=== PATIENT | male | born 1940 | race Caucasian/White ===

== ENCOUNTER → 2016-12-15 | Outpatient (CLI) | payer BC ==
[~2016-12-15] MED LIST: ASPCH81X PO; CHOL100010 PO; CLB/200 PO
[2016-12-15 13:52] LABS: BASO ABS # 0.05 K/uL (0-0.2); COMPLETE YES; EOS % 5.8 %; HEMATOCRIT 45.8 % (42-52); IG% 0.2 %; LYMPH % 36.2 %; LYMPH ABS # 1.81 K/uL (1.2-3.4); MEAN CELL VOLUME 95.2 fL (80-100); MEAN CORPUSCULAR HEMOGLOBIN 33.5 pg (25-34); MEAN CORPUSCULAR HGB CONC 35.2 g/dl (32-36); MEAN PLATELET VOLUME 10.6 fL (7.4-10.4); MONO % 8.4 %; NEUT % 48.4 %; PLATELET COUNT 164 K/uL (130-400); RED BLOOD COUNT 4.81 M/uL (4.7-6.1)
[2016-12-15 14:17] LABS: ALB/GLOB RATIO 1.1 (0.9-2); ALKALINE PHOSPHATASE 79 U/L (45-117); ALT/SGPT 19 U/L (12-78); AST/SGOT 17 U/L (15-37); BLOOD UREA NITROGEN 19 mg/dl (7-18); BUN/CREATININE RATIO 17.4 (10-20); CALCIUM 9.2 mg/dl (8.5-10.1); CARBON DIOXIDE 28 mmol/L (21-32); CHLORIDE 107 mmol/L (98-107); CHOLESTEROL 161 mg/dl (0-200); GLUCOSE 94 mg/dl (70-99); POTASSIUM 4.3 mmol/L (3.5-5.1); SODIUM 143 mmol/L (136-145)
[2016-12-15 14:25] LABS: CHOLESTEROL/HDL RATIO 2.6; HDL CHOLESTEROL 61 mg/dl; LDL CHOLESTEROL CALCULATED 78 mg/dl; TRIGLYCERIDES 108 mg/dl (0-150); VERY LOW DENSITY LIPOPROT CALC 22 mg/dl
== END | disposition home or self-care (01) ==
LOC: C.LABBC 09:21
PROVIDERS: ATTEND Internal Medicine Geriatric Medicine
DX: M19.90 Unspecified osteoarthritis, unspecified site (principal); D12.6 Benign neoplasm of colon, unspecified; R03.0 Elevated blood-pressure reading, without diagnosis of hypertension

== ENCOUNTER → 2017-10-23 | Outpatient (CLI) | payer BC ==
--- NOTE | 2017-10-23 11:20 | DIAGNOSTIC IMAGING REPORT ---
L FINGER(S) MIN 2 VIEWS ROUTINE CLINICAL HISTORY: S67.10XA Injury, crush, fingerDropped a 15 lb weight on his left COMPARISON: None. DISCUSSION: Nondisplaced transverse fracture distal phalanx left third finger. Moderate soft tissue edema. No evidence of dislocation. IMPRESSION: Nondisplaced transverse fracture tuft distal phalanx left third finger. Soft tissue edema. The above report was generated using voice recognition software. It may contain grammatical, syntax or spelling errors. Electronically signed by: Angel Reece M.D. 10/23/2017 11:19 AM Dictated Date/Time: 10/23/2017 11:18 AM
== END | disposition home or self-care (01) ==
LOC: C.RADBC 10:57
PROVIDERS: ATTEND Physician Assistant
DX: S62.663A Nondisplaced fracture of distal phalanx of left middle finger, initial encounter for closed fracture (principal); X58.XXXA Exposure to other specified factors, initial encounter; M79.9 Soft tissue disorder, unspecified

== ENCOUNTER → 2018-02-16 | Outpatient (CLI) | payer BC ==
[2018-02-16 16:48] LABS: BASO % 0.6 %; BASO ABS # 0.03 K/uL (0-0.2); EOS % 5.8 %; HEMATOCRIT 43.3 % (42-52); HEMOGLOBIN 15.2 g/dL (14.0-18.0); IG# 0.01 K/uL (0.00-0.02); LYMPH % 32.9 %; MEAN CELL VOLUME 95.2 fL (80-100); MEAN CORPUSCULAR HEMOGLOBIN 33.4 pg (25-34); MEAN CORPUSCULAR HGB CONC 35.1 g/dl (32-36); MEAN PLATELET VOLUME 9.6 fL (7.4-10.4); MONO % 7.5 %; MONO ABS # 0.39 K/uL (0.11-0.59); NEUT ABS # 2.74 K/uL (1.4-6.5); PLATELET COUNT 181 K/uL (130-400); RED CELL DISTRIBUTION WIDTH CV 12.4 % (11.5-14.5); RED CELL DISTRIBUTION WIDTH SD 42.8 fL (36.4-46.3); WHITE BLOOD COUNT 5.17 K/uL (4.8-10.8)
[2018-02-16 17:01] LABS: ALBUMIN 3.8 gm/dl (3.4-5.0); ALT/SGPT 19 U/L (12-78); BLOOD UREA NITROGEN 22 mg/dl (7-18); CALCIUM 9.1 mg/dl (8.5-10.1); CARBON DIOXIDE 32 mmol/L (21-32); CHOLESTEROL 154 mg/dl (0-200); CREATININE 0.94 mg/dl (0.60-1.40); GLUCOSE 101 mg/dl (70-99); POTASSIUM 3.9 mmol/L (3.5-5.1); SODIUM 140 mmol/L (136-145)
[2018-02-16 17:04] LABS: ALKALINE PHOSPHATASE 89 U/L (45-117); AST/SGOT 20 U/L (15-37); LDL CHOLESTEROL CALCULATED 76 mg/dl; TOTAL PROTEIN 6.9 gm/dl (6.4-8.2)
== END | disposition home or self-care (01) ==
LOC: C.LABPBG 14:24
PROVIDERS: ATTEND Internal Medicine Geriatric Medicine
DX: M19.90 Unspecified osteoarthritis, unspecified site (principal); D12.6 Benign neoplasm of colon, unspecified; R03.0 Elevated blood-pressure reading, without diagnosis of hypertension

== ENCOUNTER 2019-05-26 04:47 | Inpatient (IN) ==
--- NOTE | 2019-05-04 10:33 | PAT Medication Instructions ---
Medication Instructions Date of Service May 04, 2019 Home Medications celecoxib 200 mg capsule 200 mg PO QAM cholecalciferol (vitamin D3) 1,000 unit capsule 1,000 units PO QHS ASK your prescriber and surgeon celecoxib 200 mg capsule 200 mg PO QAM - HOLD 7 DAYS PRIOR TO SURGERY PER PCP'S OFFICE. Take morning of surgery NOTHING TO EAT OR DRINK AFTER MIDNIGHT Take evening before surgery cholecalciferol (vitamin D3) 1,000 unit capsule 1,000 units PO QHS Other Notes If you have any questions please call us at [phone] or [phone] or [phone] or [phone]
--- NOTE | 2019-05-04 11:28 | Anesthesiology Consultation ---
Date of Service May 04, 2019 Assessment & Plan (1) Encounter for pre-operative examination: Chart Review Chart Review: Acceptable Risk for Surgery and Patient seen in Pre Admission Testing Consults Requested medical & cardiac (Tamar Whitney (05/03)) Patient was seen by PCPs office on 05/03 for preoperative evaluation. Per note from that visit, "Using the revised cardiac risk index, he is low risk, class I for cardiac complications with upcoming left total hip arthroplasty." Patient referred to [facility] cardiology due to onset of new LBBB. Was seen on 05/06/19 and an ECHO was performed that day as well (see results above). Per note from that visit "based on his high functional status without limiting cardiopulmonary symptoms and stable exercise tolerance - Patient is an acceptable surgical risk to proceed with surgery as scheduled" Teaching & Discussion Pre-Anesthesia Teaching/Discussion Notes: Instructed NPO after midnight before surgery, except medications with 15 cc of water. Medication instructions provided according to the PAT guidelines. History Surgery Operation Date: 05/26/19 07:15 Proposed Procedures p Left Total Hip Arthroplasty - Armen Morales MD Height/Weight Height: 6 ft 1 in Weight: 81.7 kg Allergies Allergy/AdvReac Type Severity Reaction Status Date / Time No Known Drug Allergies Allergy Verified 05/03/19 07:57 Medications Home Medications Medication Instructions Recorded Confirmed Last Taken celecoxib 200 mg capsule 200 mg PO QAM #90 cap 04/27/19 05/03/19 Unknown cholecalciferol (vitamin D3) 1,000 1,000 units PO QAM 04/28/19 05/03/19 Unknown unit capsule Past Medical History Medical History Vitamin D deficiency Osteoarthritis Nonfamilial multiple polyposis syndrome Exercise / Class Metabolic Activity II 4-5 Yardwork/Stairs/Walk up hill (Stretches/planks/pushups each morning. Walks each day, but less each day due to pain. Able to climb FOS. Denies CP or SOB. ) Past Family History Family History Father Congestive heart failure Dementia Mother Heart disease Bipolar disorder Past Surgical History Surgical History History of right hip replacement right. October 2015, Dr. Keene Hx of arthroscopy of right knee 05/25/[address] Dubon Hx of colonoscopy Hx of right inguinal hernia repair Repair right inguinal hernia with marlex mesh (prolite mesh) and excision lipoma of cord 03/27/15 Dr. Leslie Past Anesthesia History No Hx of Anesthesia Complications and No Family Hx of Anesthesia Complications History of PONV No Hx of PONV and No Hx of Motion Sickness Social History Smoking Status: Never smoker Do You Dip or Chew Tobacco: No Hx Alcohol Use: Yes Alcohol type: wine alcohol intake frequency: a few times a month Hx Substance Use: No substance use type: does not use Review of Systems Patient denies chest pain, shortness of breath, dyspnea on exertion, reflux, cough, wheezing, palpitations. +Joint Pain (Hip, Back from spinal stenosis) Physical Exam Vital Signs BP: 132/60 P: 49 R: 12 T: 98.2 SPO2: 96% on RA ENMT Mouth: + poor dentition Thyromental Distance: > or= 3.5 Finger Breadths (4) Mallampati Class: I Neck normal visual inspection and trachea midline; neck extension not limited Respiratory normal respiratory effort Auscultation: + wheezes (rare scattered expiratory wheezes) Cardiovascular Rate/Rhythm: regular rate and regular rhythm Heart Sounds: no murmur Vessels: no carotid bruit Neurologic moves all extremities Psychiatric Orientation: alert and oriented x 3 Testing Laboratory Results 05/04/19 12:00 05/04/19 12:00 PT 11.1 Seconds (9.0-12.0) 05/04/19 12:00 INR 1.1 (0.9-1.1) 05/04/19 12:00 APTT 27.9 Seconds (21.0-31.0) 05/04/19 12:00 Hemoglobin A1c 5.3 % (4.5-5.6) 05/04/19 12:00 Urine Color Dark Yellow 05/04/19 12:00 Urine Appearance Clear (Clear) 05/04/19 12:00 Urine pH 6.0 (4.5-7.5) 05/04/19 12:00 Ur Specific [place] 1.029 (1.000-1.030) 05/04/19 12:00 Urine Protein Negative (Negative) 05/04/19 12:00 Urine Glucose (UA) Negative (Negative) 05/04/19 12:00 Urine Ketones Trace (Negative) H 05/04/19 12:00 Urine Nitrite Negative (Negative) 05/04/19 12:00 Ur Leukocyte Esterase Negative (Negative) 05/04/19 12:00 Blood Type O Positive 05/04/19 12:00 Antibody Screen NEGATIVE 05/04/19 12:00 05/04/19 12:00 Urine Culture - Final Urine,Clean Catch No growth - less than 1,000 colonies/mL. Electrocardiogram Date: 05/03/19 Sinus rhythm with occasional premature ventricular complexes. Rightward axis. Left bundle branch block When compared with ECG of 03/20/15 Premature ventricular complexes are now present Left bundle branch block is now present Echocardiogram Date: 05/06/19 EF: 35-40% Other Findings: + LVH (mild concentric) and + diastolic dysfunction (Grade 1) Mild to moderate left ventricular systolic dysfunction. The presence of LBBB and ventricular ectopy decreases the accuracy of the assessment. Mild concentric LVH Grade 1 left ventricular diastolic dysfunction Mild aortic root dilatation Trace mitral, tricuspid, pulmonic, and aortic regurgitation
[2019-05-04 12:49] LABS: Basophils # (auto) 0.04 K/uL (0-0.2); Basophils % (auto) 0.7 %; Eosinophils % (auto) 5.2 %; Hematocrit (blood only) 42.8 % (42-52); Hemoglobin 15.2 g/dL (14.0-18.0); Immature Granulocytes # (auto) 0.01 K/uL (0.00-0.02); Immature Granulocytes % (auto) 0.2 %; Lymphocytes # (auto) 1.74 K/uL (1.2-3.4); Lymphocytes % (auto) 30.4 %; Mean Corpuscular Hgb Conc 35.5 g/dL (32-36); Mean Corpuscular Volume 94.5 fL (80-100); Mean Platelet Volume 10.5 fL (7.4-10.4); Monocytes # (auto) 0.51 K/uL (0.11-0.59); Monocytes % (auto) 8.9 %; Neutrophils # (auto) 3.12 K/uL (1.4-6.5); Neutrophils % (auto) 54.6 %; Platelet Count 172 K/uL (130-400); RDW Coefficient of Variation 12.4 % (11.5-14.5); RDW Standard Deviation 42.5 fL (36.4-46.3); Red Blood Count 4.53 M/uL (4.7-6.1); White Blood Count 5.72 K/uL (4.8-10.8)
[2019-05-04 12:53] LABS: Appearance Urine Clear (Clear); Bilirubin Urine Negative (Negative); Blood Urine Negative (Negative); Color Urine Dark Yellow; Glucose Urine UA Negative (Negative); Ketones Urine Trace (Negative); Leukocyte Esterase Urine Negative (Negative); Nitrite Urine Negative (Negative); Protein Urine Negative (Negative); Specific Gravity Urine 1.029 (1.000-1.030); Urobilinogen Urine Negative (Negative)
[2019-05-04 13:00] LABS: INR 1.1 (0.9-1.1); Partial Thromboplastin Time 27.9 Seconds (21.0-31.0); Prothrombin Time 11.1 Seconds (9.0-12.0)
[2019-05-04 13:06] LABS: Estimated Average Glucose 105 mg/dl; Hemoglobin A1C 5.3 % (4.5-5.6)
[2019-05-04 13:07] LABS: Albumin Level 3.6 gm/dl (3.4-5.0); BUN Creatinine Ratio 20.5 (10-20); Creatinine Clr Calc Pharmacy 78.7 ml/min; Est GFR (African American) 95.6; Est GFR (Non-African American) 82.5; Potassium 4.4 mmol/L (3.5-5.1)
[2019-05-04 13:09] LABS: Albumin Globulin Ratio 1.1 (0.9-2); Bilirubin,Total 0.6 mg/dl (0.2-1); Globulin 3.4 gm/dl (2.5-4.0)
--- NOTE | 2019-05-04 15:16 | History & Physical Report ---
Date of Service May 04, 2019 Assessment & Plan (1) Unilateral primary osteoarthritis, left hip: DIAGNOSIS: Left hip osteoarthritis. PROCEDURE: Left total hip arthroplasty. PLAN: The patient is scheduled to undergo this procedure at [facility] on 05/26/[address] Armen Morales as an inpatient. Risks and complications of the procedure such as infection, bleeding, pain, scarring, nerve, blood vessel damage, weakness, wound problems, stiffness, incomplete relief of symptoms, hardware failure, hardware loosening, wear, fracture, tendon or ligament injury, dislocation, leg length inequality, blood clots, embolism, heart attack, stroke and were explained to patient by Dr. Morales during today's visit. Informed consent to perform the procedure was obtained. We will also obtain preoperative medical clearance from [facility] physician group provider Adry Jarrett PA-C. We will need to obtain a preoperative CBC with differential, complete metabolic panel, PT, INR, blood type and screen, urinalysis, urine culture, EKG, hemoglobin A1c and nasal culture for MRSA. The patient states he will obtain necessary testing prior to his preoperative anesthesia clearance at the hospital this afternoon. The patient was advised he will be provided with prescription pain medication upon discharge from the hospital and is instructed to purchase aepb-scl-oddexap Extra Strength Tylenol and aspirin to use for pain control due to DVT prophylaxis, respectively. The patient was given paperwork to obtain a handicap placard for his vehicle prior to the procedure. He was offered information about lectures offered by [facility] in regards to hip replacement surgery. States he has already attended one of these prior to his previous surgery and does not wish to do so. He states he also has a standing prescription for antibiotics for any type of dental cleaning or procedure. He has a walker at home from his previous surgery that he will bring with him on the day of surgery. He is not sure if he still has the abduction pillow so I advised him that we will provide him with a new one. The patient states he will most likely do an in-home physical therapy with home health for the first 2 weeks postoperatively and then transition back to outpatient therapy after the 2 week followup visit. The patient is scheduled for his [address] Morales on June 10 at 11:00 a.m. He states that he will review the packet provided to him during today's visit in regards to the total hip arthroplasty. He verbalized understanding of all information provided during today's visit, thanked us for the care he has received and states if he has questions or concerns that should arise prior to his procedure date, he will contact the clinic accordingly. History of Present Illness Chief Complaint: Left hip pain Primary Care Provider: Tamar Whitney PA-C HISTORY OF PRESENT ILLNESS: This 78-year-old male presents to clinic today for his preoperative history and physical. Patient complains of 1 year history of sharp left groin pain that increases with twisting the left lower extremity or going on long walks. Patient denies any injury, any numbness or tingling or radiation of pain. States that he previously underwent a right total hip arthroplasty [address] Keene and experienced similar symptoms prior to that procedure. PAST SURGICAL HISTORY: Colonoscopy, right total hip arthroplasty, right knee arthroscopy, right inguinal hernia repair. PAST MEDICAL HISTORY: Colonic polyps and spinal stenosis. FAMILY HISTORY: Positive for diabetes and heart disease. ALLERGIES: Patient has no known drug allergies. CURRENT MEDICATIONS: Celebrex unknown dosage daily and vitamin D3 unknown dosage daily. SOCIAL HISTORY: The patient denies smoking or illicit drug use. States that he occasionally consumes alcohol. Allergies Allergy/AdvReac Type Severity Reaction Status Date / Time No Known Drug Allergies Allergy Verified 05/03/19 07:57 Home Medications Home Medications Medication Instructions Recorded Confirmed Type celecoxib 200 mg capsule 200 mg PO QAM #90 cap 04/27/19 05/03/19 History cholecalciferol (vitamin D3) 1,000 1,000 units PO QAM 04/28/19 05/03/19 History unit capsule Past Med/Surg History Medical History Vitamin D deficiency Osteoarthritis Nonfamilial multiple polyposis syndrome Surgical History History of right hip replacement right. October 2015, Dr. Keene Hx of arthroscopy of right knee 05/25/[address] Dubon Hx of colonoscopy Hx of right inguinal hernia repair Repair right inguinal hernia with marlex mesh (prolite mesh) and excision lipoma of cord 03/27/15 Dr. 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 Eyes: Pupils are equal and reactive to light and accommodating. Extraocular movements are intact. Throat: Posterior oropharynx clear without absence of edema, erythema or exudate. Cardiovascular exam: The patient has a regular rate but irregular rhythm with a skip -2 every fourth beat. Otherwise there are no murmurs or gallops appreciated. Lungs: Auscultation of lung owen reveals clear breath sounds throughout, no wheezing, rales or rhonchi. Abdomen is mildly obese, nondistended, nontender with normoactive bowel sounds. Extremities: Left hip with flexion to 90 degrees at the hip. The patient experiences significant pain referred to the inguinal area with internal or external rotation. He has tenderness to palpation over the anterior groin. He has referred pain to the inguinal area with active abduction and adduction. He also has a positive log roll test, negative essential test and negative straight leg raise. Results & Data Laboratory Results 05/04/19 05/04/19 05/04/19 Range/Units 12:00 12:00 12:00 WBC (4.8-10.8) K/uL RBC (4.7-6.1) M/uL Hgb (14.0-18.0) g/dL Hct (42-52) % MCV (80-100) fL MCH (25-34) pg MCHC (32-36) g/dL RDW Std Deviation (36.4-46.3) fL RDW Coeff of Mello (11.5-14.5) % Plt Count (130-400) K/uL MPV (7.4-10.4) fL Immature Gran % (Auto) % Neut % (Auto) % Lymph % (Auto) % [place] % (Auto) % Eos % (Auto) % Baso % (Auto) % Immature Gran # (Auto) (0.00-0.02) K/uL Neut # (Auto) (1.4-6.5) K/uL Lymph # (Auto) (1.2-3.4) K/uL [place] # (Auto) (0.11-0.59) K/uL Eos # (Auto) (0-0.5) K/uL Baso # (Auto) (0-0.2) K/uL PT 11.1 (9.0-12.0) Seconds INR 1.1 (0.9-1.1) APTT 27.9 (21.0-31.0) Seconds PTT Ratio 1.0 Sodium (136-145) mmol/L Potassium (3.5-5.1) mmol/L Chloride (98-107) mmol/L Carbon Dioxide (21-32) mmol/L Anion Gap (3-11) BUN (7-18) mg/dl Creatinine (0.6-1.4) mg/dl Est Cr Clr Drug Dosing ml/min Est GFR ( Amer) Est GFR (Non-Af Amer) BUN/Creatinine Ratio (10-20) Glucose (70-99) mg/dl Estimat Average Glucose 105 mg/dl Hemoglobin A1c 5.3 (4.5-5.6) % Calcium (8.5-10.1) mg/dl Total Bilirubin (0.2-1) mg/dl AST (15-37) U/L ALT (12-78) U/L Alkaline Phosphatase (45-117) U/L Total Protein (6.4-8.2) gm/dl Albumin (3.4-5.0) gm/dl Globulin (2.5-4.0) gm/dl Albumin/Globulin Ratio (0.9-2) Urine Color Urine Appearance (Clear) Urine pH (4.5-7.5) Ur Specific [place] (1.000-1.030) Urine Protein (Negative) Urine Glucose (UA) (Negative) Urine Ketones (Negative) Urine Blood (Negative) Urine Nitrite (Negative) Urine Bilirubin (Negative) Urine Urobilinogen (Negative) Ur Leukocyte Esterase (Negative) Nasal Screen MRSA (PCR) (Negative) Blood Type O Positive Antibody Screen NEGATIVE 05/04/19 05/04/19 05/04/19 Range/Units 12:00 12:00 12:00 WBC (4.8-10.8) K/uL RBC (4.7-6.1) M/uL Hgb (14.0-18.0) g/dL Hct (42-52) % MCV (80-100) fL MCH (25-34) pg MCHC (32-36) g/dL RDW Std Deviation (36.4-46.3) fL RDW Coeff of Mello (11.5-14.5) % Plt Count (130-400) K/uL MPV (7.4-10.4) fL Immature Gran % (Auto) % Neut % (Auto) % Lymph % (Auto) % [place] % (Auto) % Eos % (Auto) % Baso % (Auto) % Immature Gran # (Auto) (0.00-0.02) K/uL Neut # (Auto) (1.4-6.5) K/uL Lymph # (Auto) (1.2-3.4) K/uL [place] # (Auto) (0.11-0.59) K/uL Eos # (Auto) (0-0.5) K/uL Baso # (Auto) (0-0.2) K/uL PT (9.0-12.0) Seconds INR (0.9-1.1) APTT (21.0-31.0) Seconds PTT Ratio Sodium 141 (136-145) mmol/L Potassium 4.4 (3.5-5.1) mmol/L Chloride 110 H (98-107) mmol/L Carbon Dioxide 27 (21-32) mmol/L Anion Gap 4.0 (3-11) BUN 18 (7-18) mg/dl Creatinine 0.86 (0.6-1.4) mg/dl Est Cr Clr Drug Dosing 78.7 ml/min Est GFR ( Amer) 95.6 Est GFR (Non-Af Amer) 82.5 BUN/Creatinine Ratio 20.5 H (10-20) Glucose 91 (70-99) mg/dl Estimat Average Glucose mg/dl Hemoglobin A1c (4.5-5.6) % Calcium 9.0 (8.5-10.1) mg/dl Total Bilirubin 0.6 (0.2-1) mg/dl AST 15 (15-37) U/L ALT 15 (12-78) U/L Alkaline Phosphatase 100 (45-117) U/L Total Protein 7.0 (6.4-8.2) gm/dl Albumin 3.6 (3.4-5.0) gm/dl Globulin 3.4 (2.5-4.0) gm/dl Albumin/Globulin Ratio 1.1 (0.9-2) Urine Color Dark Yellow Urine Appearance Clear (Clear) Urine pH 6.0 (4.5-7.5) Ur Specific [place] 1.029 (1.000-1.030) Urine Protein Negative (Negative) Urine Glucose (UA) Negative (Negative) Urine Ketones Trace H (Negative) Urine Blood Negative (Negative) Urine Nitrite Negative (Negative) Urine Bilirubin Negative (Negative) Urine Urobilinogen Negative (Negative) Ur Leukocyte Esterase Negative (Negative) Nasal Screen MRSA (PCR) Negative (Negative) Blood Type Antibody Screen 05/04/19 Range/Units 12:00 WBC 5.72 (4.8-10.8) K/uL RBC 4.53 L (4.7-6.1) M/uL Hgb 15.2 (14.0-18.0) g/dL Hct 42.8 (42-52) % MCV 94.5 (80-100) fL MCH 33.6 (25-34) pg MCHC 35.5 (32-36) g/dL RDW Std Deviation 42.5 (36.4-46.3) fL RDW Coeff of Mello 12.4 (11.5-14.5) % Plt Count 172 (130-400) K/uL MPV 10.5 H (7.4-10.4) fL Immature Gran % (Auto) 0.2 % Neut % (Auto) 54.6 % Lymph % (Auto) 30.4 % [place] % (Auto) 8.9 % Eos % (Auto) 5.2 % Baso % (Auto) 0.7 % Immature Gran # (Auto) 0.01 (0.00-0.02) K/uL Neut # (Auto) 3.12 (1.4-6.5) K/uL Lymph # (Auto) 1.74 (1.2-3.4) K/uL [place] # (Auto) 0.51 (0.11-0.59) K/uL Eos # (Auto) 0.30 (0-0.5) K/uL Baso # (Auto) 0.04 (0-0.2) K/uL PT (9.0-12.0) Seconds INR (0.9-1.1) APTT (21.0-31.0) Seconds PTT Ratio Sodium (136-145) mmol/L Potassium (3.5-5.1) mmol/L Chloride (98-107) mmol/L Carbon Dioxide (21-32) mmol/L Anion Gap (3-11) BUN (7-18) mg/dl Creatinine (0.6-1.4) mg/dl Est Cr Clr Drug Dosing ml/min Est GFR ( Amer) Est GFR (Non-Af Amer) BUN/Creatinine Ratio (10-20) Glucose (70-99) mg/dl Estimat Average Glucose mg/dl Hemoglobin A1c (4.5-5.6) % Calcium (8.5-10.1) mg/dl Total Bilirubin (0.2-1) mg/dl AST (15-37) U/L ALT (12-78) U/L Alkaline Phosphatase (45-117) U/L Total Protein (6.4-8.2) gm/dl Albumin (3.4-5.0) gm/dl Globulin (2.5-4.0) gm/dl Albumin/Globulin Ratio (0.9-2) Urine Color Urine Appearance (Clear) Urine pH (4.5-7.5) Ur Specific [place] (1.000-1.030) Urine Protein (Negative) Urine Glucose (UA) (Negative) Urine Ketones (Negative) Urine Blood (Negative) Urine Nitrite (Negative) Urine Bilirubin (Negative) Urine Urobilinogen (Negative) Ur Leukocyte Esterase (Negative) Nasal Screen MRSA (PCR) (Negative) Blood Type Antibody Screen
[2019-05-26] MEDS ORDERED: dexAMETHasone 4 MG TAB PO SCH (06:00)
[2019-05-26] MEDS ORDERED: LR 500ML BOLUS IV SCH (06:00)
[2019-05-26] MEDS ORDERED: SCOPOLAMINE 1.5 MG TDSY TD SCH ×2 (06:00)
[2019-05-26] MEDS ORDERED: CEFAZOLIN 2000MG 2,000 MG/15 ML SYR IV SCH (06:00)
[2019-05-26] MEDS ORDERED: TRAMADOL HCL 50 MG TABLET PO SCH (06:00)
[2019-05-26] MEDS ORDERED: FAMOTIDINE 20 MG TAB PO SCH (06:00)
[2019-05-26] MEDS ORDERED: LR 500ML BOLUS, THEN 15ML/HR IV SCH (06:00)
[2019-05-26] MEDS ORDERED: LR 60ML/HR IV SCH (06:00)
[2019-05-26] MEDS ORDERED: TRANEXAMIC ACID 1,000 MG x 1 **For Topical Use TOP SCH (06:00)
[2019-05-26] MEDS ORDERED: METOCLOPRAMIDE HCL 10 MG TABLET PO SCH (06:00)
[2019-05-26] MEDS ORDERED: ACETAMINOPHEN 500 MG TAB PO SCH (06:00)
[2019-05-26] MEDS ORDERED: ROPIVACAINE 0.5% HCL/PF 150 MG, BUPIVACAINE 0.5% MPF 30 ML, EPINEPHrine 0.15 MG, Ketoro... INFIL SCH (06:00)
[2019-05-26] MEDS ORDERED: TRANEXAMIC ACID 1,000 MG **IV Pre-op IV SCH (06:00)
[2019-05-26] MEDS ORDERED: LR 15ML/HR IV SCH (06:00)
[2019-05-26] MEDS ORDERED: CeleBREX 200 MG CAP PO SCH (06:00)
[2019-05-26] MEDS ORDERED: BUPIVACAINE 0.5 % 5 MG/1 ML PF 10ML VIAL ONE (06:25)
[2019-05-26] MEDS ORDERED: TRANEXAMIC ACID 1,000 MG **IV Intra-op IV SCH (06:30)
[2019-05-26] MEDS ORDERED: MIDAZOLAM HCL 1 MG/ML 2ML VIAL ONE ×2 (06:59→07:00)
[2019-05-26] MEDS ORDERED: fentaNYL citrate 100 MCG/2 ML VIAL ONE ×3 (07:00→07:32)
[2019-05-26] MEDS ORDERED: PROPOFOL IV EMULSION 10 MG/ML 20 ML VIAL IV ONE (07:09)
--- NOTE | 2019-05-26 07:14 | History & Physical Bridge Note ---
Date of Service May 26, 2019 History & Physical Bridge Note I have examined the patient, reviewed the History & Physical and in the interval since the performance of the History & Physical I have noted the following changes of clinical significance: no changes noted
[2019-05-26] MEDS ORDERED: ATROPINE SULFATE 0.1 MG/ML 10ML SYR IV PRN (07:34)
[2019-05-26] MEDS ORDERED: ePHEDrine sulfate 50 MG/ML AMP IV PRN (07:34)
[2019-05-26] MEDS ORDERED: HYDROmorphone INJ 2 MG/ML SYR/VIAL IV PRN (07:34)
[2019-05-26] MEDS ORDERED: ORTHO JOINT ANESTHETIC ONE (07:45)
[2019-05-26] MEDS ORDERED: ONDANSETRON INJ 2 MG/ML 2 ML VIAL ONE (08:23)
[2019-05-26] MEDS ORDERED: DEXAMETHASONE SOD INJ 4 MG/ML VIAL ONE (08:23)
--- NOTE | 2019-05-26 09:01 | Post Operative Brief Note ---
Immediate Post Op Note v1 Date of Surgery May 26, 2019 Pre & Post Diagnosis Operation Date: 05/26/19 07:15 Pre-Op Diagnosis: Left Hip Osteoarthritis Post-Op Diagnosis: Left Hip Osteoarthritis Procedure Operation Date: 05/26/19 07:15 Actual Procedures p Left Total Hip Arthroplasty--Uncemented(Left) - Armen Morales MD Surgeon Armen Morales MD Saw Filer NIALL Degroot PA-C Estimated Blood Loss 100 Findings Consistent with Post-Op Diagnosis Anesthesia Type General Complications none Disposition Accompanied Patient To Recovery: No Disposition: Recovery Room
--- NOTE | 2019-05-26 09:04 | Operative Report ---
Post Operative Report Pre & Post Diagnosis Operation Date: 05/26/19 07:15 Pre-Op Diagnosis: Left Hip Osteoarthritis Post-Op Diagnosis: Left Hip Osteoarthritis Procedure Operation Date: 05/26/19 07:15 Actual Procedures p Left Total Hip Arthroplasty--Uncemented(Left) - Armen Morales MD Surgeon Armen Morales MD Fixed Income Portfolio Manager NIALL Degroot PA-C Estimated Blood Loss 100 Findings Consistent with Post-Op Diagnosis Specimens femoral head Complications none Disposition Accompanied Patient To Recovery: Yes Disposition: Recovery Room Description of Procedure I was present during the entire case assisting with wound closure and dressing application. Please see Dr. Morales procedure note for specifics of the case. I attest to the content of the Intraoperative Record and any orders documented therein. Any exceptions are noted below.
[2019-05-26] MEDS ORDERED: METOCLOPRAMIDE HCL INJ 5 MG/ML 2 ML VIAL IV PRN (09:05)
[2019-05-26] MEDS ORDERED: NALOXONE HCL 0.4 MG/1 ML VIAL/CARP IV PRN (09:05)
[2019-05-26] MEDS ORDERED: TAMSULOSIN HCL 0.4 MG CAP PO PRN (09:05)
[2019-05-26] MEDS ORDERED: BISACODYL 10 MG SUPP PR PRN (09:05)
[2019-05-26] MEDS ORDERED: MAGNESIUM HYDROXIDE SUSP 30 ML UDC PO PRN (09:05)
[2019-05-26] MEDS ORDERED: OXYCODONE HCL IR 5 MG TAB (IMMEDIATE RELEASE) PO PRN (09:05)
[2019-05-26] MEDS ORDERED: DiphenhydrAMINE HCL 50 MG/ML VIAL IV PRN (09:05)
[2019-05-26] MEDS ORDERED: ALUMINUM/MAGNESIUM SUSP 30 ML UDC PO PRN (09:05)
[2019-05-26] MEDS ORDERED: ONDANSETRON INJ 2 MG/ML 2 ML VIAL IV PRN (09:05)
--- NOTE | 2019-05-26 09:36 | XRay Report ---
XR hip 1V LT w pelvis CLINICAL HISTORY: IN PACU - A/P PELVIS and LATERAL HIP COMPARISON: 05/04/2019 DISCUSSION: Total left hip arthroplasty in good position. Appropriate contact between the prosthetic and underlying bone. Expected soft tissue postoperative changes. Pre-existing total right hip arthroplasty. IMPRESSION: Anatomic alignment posttotal left hip arthroplasty. The above report was generated using voice recognition software. It may contain grammatical, syntax or spelling errors. Electronically signed by: Angel Reece M.D. 05/26/2019 9:34 AM
--- NOTE | 2019-05-26 09:51 | Anesthesiology Progress Note ---
Date of Service May 26, 2019 Anesthesia Post Procedure Vital Signs Vital Signs: Temp Pulse Resp BP Pulse Ox 05/26/19 09:45 36.3 C L 92 H 16 125/72 96 05/26/19 09:35 98 H 18 123/72 97 05/26/19 09:25 92 H 18 124/64 99 05/26/19 09:15 90 14 114/59 L 99 05/26/19 09:08 36.7 C 90 16 113/62 99 05/26/19 05:38 36.6 C 91 H 20 178/86 H 98 Transfer of Care Handoff Completed per policy Notes Mental Status: alert / awake / arousable Patient Amnestic to Procedure: Yes Nausea / Vomiting: adequately controlled Pain: adequately controlled Airway Patency, RR, SpO2: stable & adequate BP & HR: stable & adequate Hydration State: stable & adequate Anesthetic Complications: no major complications apparent and Pt Satisfied with anesthetic care
[2019-05-26] MEDS: SODIUM CHLORIDE 0.9% 1000ML 1,000 ML IV SCH ×2 (10:50→20:56)
[2019-05-26] MEDS: ACETAMINOPHEN 500 MG TAB PO SCH ×2 (13:52→22:50)
--- NOTE | 2019-05-26 14:15 | Operative Report ---
DATE OF OPERATION: 05/26/2019 PREOPERATIVE DIAGNOSIS: Left hip osteoarthritis. POSTOPERATIVE DIAGNOSIS: Left hip osteoarthritis. OPERATION PERFORMED: Left total hip arthroplasty. SURGEON: Armen Morales MD CERTIFIED HOME HEALTH AIDE: Benson Degroot PA-C ESTIMATED BLOOD LOSS: 100 mL. SPECIMENS: Femoral head. COMPLICATIONS: None. IMPLANTS: 1. DePuy Hilham Gription acetabular cup 60 mm outer diameter. 2. A 35 mm 6.5 cancellous bone screw. 3. Ultrex polyethylene liner for 36 mm femoral head. 4. DePuy Iroquois tapered high offset size 6 stem. 5. A 36 mm +8.5 metal femoral head. INDICATIONS: Mr. Degroot is a 78-year-old gentleman who is status post a right total hip arthroplasty in the past with a good result. He is now having symptoms in his left hip similar to what he had before the total hip arthroplasty on the right side including groin pain that is affecting his activities of daily living. He has failed nonsurgical management. X-rays demonstrate bone on bone arthritis. I had a long discussion with him about the risks and benefits of surgery, alternatives to surgery and expected outcomes. After reviewing all these, he elected to proceed with surgery. All questions were answered. Informed consent was signed. OPERATIVE FINDINGS: Degenerative osteoarthritis of the left hip. A metal on polyethylene bearing total hip arthroplasty was performed through a posterior approach. DESCRIPTION OF PROCEDURE: The patient was identified in the preoperative holding area where his surgical site was marked. Anesthesia attempted a spinal, but was unable to place the spinal and therefore he was brought back to the main operating room and placed on the operating room table and general anesthesia was administered. He was moved in the lateral decubitus position. Axillary roll was placed. All bony prominences were padded. Perioperative antibiotics were administered. He was prepped and draped in normal sterile fashion. Prior to incision, a multidisciplinary timeout was called. All in the room were in agreement. We began by making a 12 cm incision for a posterior approach to the hip. We dissected down through subcutaneous tissues to the level of fascia. Fascia was incised in line with the incision. Charnley bow was placed. Trochanteric bursa was excised. The quadratus femoris short external rotators and piriformis were dissected off the posterior aspect of the hip. Box cut was made in the capsule. Hip was dislocated. We measured the distance from his lesser trochanter to the center femoral head at 65 mm. We then made our femoral neck cut at 10 mm, which was our preoperative template. The acetabulum was then exposed. Next, the contents of the cotyloid fossa were removed with a curette and a large pituitary rongeur. We then sharply excised his labrum and removed this. We then began reaming with a size 52 mm reamer. We sequentially reamed him up to a size 60 acetabulum. This gave us a healthy bleeding cancellous bone circumferentially. We then irrigated out the acetabulum and opened up the size 60 DePuy Gription Hilham sector cup and impacted into position with 40 degrees of lateral opening and 25 degrees of anteversion. A single 35 mm cancellous bone screw was then placed up into the ilium. Excellent fixation was obtained. The polyethylene liner for a 36-mm femoral head was then placed into the shell and impacted down into position. We checked the locking mechanism and ensured that it had engaged, which it had. Next, the femoral neck was exposed. The lateral neck was removed with a cookie cutter. Intramedullary guide was used followed by the lateralizing reamer. We then reamed him up to a size 6 Iroquois. He was then broached all the way up to a size 6 Iroquois which had excellent torsional stability and sat flush at the level of the femoral neck cut. We then trialed them with a high offset neck and a +5 mm femoral head. The hip was reduced and we checked his leg length and shuck test. He had a little bit of laxity with a shuck test and was about a millimeter or 2 short of his other side. We therefore upsized him to a +8.5 mm femoral head. With this in place, his leg lengths were perfectly symmetric. He had no impingement in extension and external rotation. He was stable in the sleeper position. At 90 degrees of hip flexion, he could be internally rotated 55 degrees before levering out of the cup. I was very happy with the stability exam. Therefore, the trial components were removed. The femoral canal was irrigated and dried. We then opened up the real size 6 high-offset Iroquois femoral stem and impacted it down into position. It sat at the same level as the broach. Therefore, we opened up the +8.5 mm metal femoral head. The trunnion was cleaned and dried and then the femoral head was gently impacted onto the trunnion. We ensured that this had locked down into position. The hip was then atraumatically reduced. The wound was then irrigated with dilute Betadine solution which was allowed to sit for 3 minutes. After 3 minutes, the Betadine was removed and the hip was irrigated out. The periarticular injection cocktail was then placed. We then repaired his piriformis capsule and short external rotators to the posterior aspect of the greater trochanter through drill holes. The Charnley bow was removed and the fascia was run with a looped #1 PDS. The subcutaneous layer was closed with a running #1 PDS. The skin was closed with a 2-0 Vicryl followed by a ZipLine and a Silverlon dressing. The patient was then rolled supine. His leg lengths were once again checked and were symmetric. He was then placed into an abduction pillow. He was awoken from anesthesia and transferred to the recovery room in stable condition. POSTOPERATIVE COURSE: The patient will be admitted to the floor from the recovery room. X-rays are pending in the recovery room. He will be weightbearing as tolerated with posterior hip precautions. He will be on aspirin for DVT prophylaxis. I attest to the content of the Intraoperative Record and any orders documented therein. Any exception s are noted below.
[2019-05-26] MEDS ORDERED: TRANEXAMIC ACID 1,000 MG in 0.9 % SODIUM CHLORIDE 100 ML IV SCH (15:30)
[2019-05-26] MEDS ORDERED: CHECK SCOPOLAMINE PATCH PLACEMENT SCH ×2 (16:00)
[2019-05-26] MEDS: CEFAZOLIN 2000MG 2,000 MG/15 ML SYR IV SCH ×2 (16:27→23:12)
[2019-05-26] MEDS: ASPIRIN 81 MG ECTAB PO SCH (20:51)
[2019-05-26] MEDS: CeleBREX 200 MG CAP PO SCH (20:51)
[2019-05-26] MEDS: DOCUSATE SODIUM 100 MG CAP PO SCH (20:51)
[2019-05-26] MEDS ORDERED: SENNA 8.6 MG TAB PO SCH (21:00)
[2019-05-27] MEDS: ACETAMINOPHEN 500 MG TAB PO SCH (06:01)
[2019-05-27 06:57] LABS: Hematocrit (blood only) 35.9 % (42-52); Immature Granulocytes # (auto) 0.01 K/uL (0.00-0.02); Immature Granulocytes % (auto) 0.1 %; Lymphocytes # (auto) 0.97 K/uL (1.2-3.4); Lymphocytes % (auto) 9.9 %; Mean Corpuscular Hgb Conc 33.4 g/dL (32-36); Mean Corpuscular Volume 94.7 fL (80-100); Mean Platelet Volume 10.1 fL (7.4-10.4); Monocytes # (auto) 0.82 K/uL (0.11-0.59); Monocytes % (auto) 8.4 %; Neutrophils # (auto) 7.95 K/uL (1.4-6.5); Neutrophils % (auto) 81.6 %; Platelet Count 147 K/uL (130-400); RDW Coefficient of Variation 12.4 % (11.5-14.5); RDW Standard Deviation 42.3 fL (36.4-46.3); Red Blood Count 3.79 M/uL (4.7-6.1); White Blood Count 9.75 K/uL (4.8-10.8)
[2019-05-27 07:35] LABS: BUN Creatinine Ratio 19.3 (10-20); Calcium 8.3 mg/dl (8.5-10.1); Creatinine Clr Calc Pharmacy 64.7 ml/min; Est GFR (African American) 78.8; Potassium 4.5 mmol/L (3.5-5.1)
[2019-05-27] MEDS ORDERED: dexAMETHasone 4 MG TAB PO SCH (08:00)
[2019-05-27] MEDS: DOCUSATE SODIUM 100 MG CAP PO SCH (08:37)
[2019-05-27] MEDS: CeleBREX 200 MG CAP PO SCH (08:38)
[2019-05-27] MEDS: ASPIRIN 81 MG ECTAB PO SCH (08:38)
[2019-05-27] MEDS ORDERED: CeleBREX 200 MG CAP PO SCH (09:00)
[2019-05-27] MEDS ORDERED: CHOLECALCIFEROL 1,000 UNITS TAB PO SCH (09:00)
[2019-05-27] MEDS ORDERED: MULTIVITAMIN TAB PO SCH (09:00)
--- NOTE | 2019-05-27 09:11 | Anesthesiology Progress Note ---
Date of Service May 27, 2019 Anesthesia Post Procedure Vital Signs Vital Signs: Temp Pulse Resp BP Pulse Ox 05/27/19 07:44 36.5 C 75 18 123/65 96 05/27/19 02:49 36.5 C 61 16 113/50 L 97 05/26/19 23:00 36.5 C 62 16 116/57 L 98 05/26/19 19:18 36.5 C 92 H 16 109/63 98 05/26/19 15:14 36.4 C L 95 H 18 113/67 97 05/26/19 12:55 36.6 C 69 20 128/78 96 05/26/19 11:55 36.6 C 87 20 111/61 94 05/26/19 10:53 36.5 C 95 H 16 119/73 95 05/26/19 10:21 36.3 C L 97 H 18 121/73 95 05/26/19 09:55 36.5 C 91 H 16 127/74 98 05/26/19 09:45 36.3 C L 92 H 16 125/72 96 05/26/19 09:35 98 H 18 123/72 97 05/26/19 09:25 92 H 18 124/64 99 05/26/19 09:15 90 14 114/59 L 99 Notes Mental Status: alert / awake / arousable and participated in evaluation Nausea / Vomiting: adequately controlled Pain: adequately controlled Airway Patency, RR, SpO2: stable & adequate BP & HR: stable & adequate Hydration State: stable & adequate
--- NOTE | 2019-05-27 11:52 | Orthopedic Progress Note ---
Date of Service May 27, 2019 Assessment & Plan (1) S/P total hip arthroplasty: Total hip precautions Did well with PT/OT ice with EZ wrap Pain control with PO meds DVT prophy with TEDs and Aspirin Plan on discharge after lunch today with inhome therapy Has f/u in our clinic in 2 wks. Subjective Patient is day 1 s/p Left total hip arthroplasty. Did very well with PT/OT this AM. States that he is ready to go home after lunch today. Denies hip pain, CP, SOB, nausea, vomiting, fever, chills, sweats, lethargy or weakness. Review of Systems Review of Systems: All systems reviewed & are unremarkable except as noted in HPI & below Physical Exam Physical Exam: Left hip: Dressing clean, dry and intact. No TTP around incision site. Ambulate around room several times during exam with walker without difficulty. NV intact in Left LE. Calf soft and supple. Able to easil y perform SLRT, actively dorsi/plantar flex foot, fire quad. No pain with light passive hip flexion, internal or external rotation. Results & Data Vital Signs (Past 12 Hours) Vital Signs Temp Pulse Resp BP Pulse Ox 05/27/19 11:22 37.0 C 67 18 120/57 L 94 05/27/19 07:44 36.5 C 75 18 123/65 96 05/27/19 02:49 36.5 C 61 16 113/50 L 97 Laboratory Results 05/27/19 05/27/19 Range/Units 06:34 06:34 WBC 9.75 (4.8-10.8) K/uL RBC 3.79 L (4.7-6.1) M/uL Hgb 12.0 L (14.0-18.0) g/dL Hct 35.9 L (42-52) % MCV 94.7 (80-100) fL MCH 31.7 (25-34) pg MCHC 33.4 (32-36) g/dL RDW Std Deviation 42.3 (36.4-46.3) fL RDW Coeff of Mello 12.4 (11.5-14.5) % Plt Count 147 (130-400) K/uL MPV 10.1 (7.4-10.4) fL Immature Gran % (Auto) 0.1 % Neut % (Auto) 81.6 % Lymph % (Auto) 9.9 % Marshall % (Auto) 8.4 % Eos % (Auto) 0.0 % Baso % (Auto) 0.0 % Immature Gran # (Auto) 0.01 (0.00-0.02) K/uL Neut # (Auto) 7.95 H (1.4-6.5) K/uL Lymph # (Auto) 0.97 L (1.2-3.4) K/uL Marshall # (Auto) 0.82 H (0.11-0.59) K/uL Eos # (Auto) 0.00 (0-0.5) K/uL Baso # (Auto) 0.00 (0-0.2) K/uL Sodium 140 (136-145) mmol/L Potassium 4.5 (3.5-5.1) mmol/L Chloride 109 H (98-107) mmol/L Carbon Dioxide 26 (21-32) mmol/L Anion Gap 5.0 (3-11) BUN 20 H (7-18) mg/dl Creatinine 1.04 (0.6-1.4) mg/dl Est Cr Clr Drug Dosing 64.7 ml/min Est GFR ( Amer) 78.8 Est GFR (Non-Af Amer) 68.0 BUN/Creatinine Ratio 19.3 (10-20) Glucose 126 H (70-99) mg/dl Calcium 8.3 L (8.5-10.1) mg/dl
--- NOTE | 2019-05-27 14:16 | Discharge Summary ---
Date of Service May 27, 2019 Admission HPI Per Admitting Provider HISTORY OF PRESENT ILLNESS: This 78-year-old male presents to clinic today for his preoperative history and physical. Patient complains of 1 year history of sharp left groin pain that increases with twisting the left lower extremity or going on long walks. Patient denies any injury, any numbness or tingling or radiation of pain. States that he previously underwent a right total hip arthroplasty [address] Keene and experienced similar symptoms prior to that procedure. Admission Exam Per Admitting Provider PHYSICAL EXAMINATION: Skin: Patient's skin is normal in appearance with no open skin lesions or discharge. Eyes: Pupils are equal and reactive to light and accommodating. Extraocular movements are intact. Throat: Posterior oropharynx clear without absence of edema, erythema or exudate. Cardiovascular exam: The patient has a regular rate but irregular rhythm with a skip -2 every fourth beat. Otherwise there are no murmurs or gallops appreciated. Lungs: Auscultation of lung owen reveals clear breath sounds throughout, no wheezing, rales or rhonchi. Abdomen is mildly obese, nondistended, nontender with normoactive bowel sounds. Extremities: Left hip with flexion to 90 degrees at the hip. The patient experiences significant pain referred to the inguinal area with internal or external rotation. He has tenderness to palpation over the anterior groin. He has referred pain to the inguinal area with active abduction and adduction. He also has a positive log roll test, negative essential test and negative straight leg raise. Principal Diagnosis Left Hip Osteoarthritis Discharge Exam Left hip: Dressing clean, dry and intact. No TTP around incision site. Ambulate around room several times during exam with walker without difficulty. NV intact in Left LE. Calf soft and supple. Able to easily perform SLRT, actively dorsi/plantar flex foot, fire quad. No pain with light passive hip flexion, internal or external rotation. Discharge Data Allergies Allergy/AdvReac Type Severity Reaction Status Date / Time No Known Drug Allergies Allergy Verified 05/26/19 05:48 Consultations 05/27/19 08:00 Consult Case Management - Discharge Planning Routine Procedures Performed Operation Date: 05/26/19 07:15 Actual Procedures p Left Total Hip Arthroplasty--Uncemented(Left) - Armen Morales MD Hospital Course (1) S/P total hip arthroplasty: Patient did very well overnight with no complications of surgery. He had no issues with PT/OT this AM and is ready for discharge. Total hip precautions Did well with PT/OT ice with EZ wrap Pain control with PO meds DVT prophy with TEDs and Aspirin Plan on discharge after lunch today with inhome therapy Has f/u in our clinic in 2 wks. Total Time Total Time Spent Total Time Spent (In Minutes): 20 Total Time Includes: Examination of the Patient, Discharge Planning, Medication Reconciliation and Communication With Other Providers Discharge Plan Discharge Items Patient Disposition: Home - Home Health Services Reason For Visit: Left Hip Osteoarthritis Discharge Diagnosis: Left hip osteoarthritis Discharge Goals: Decrease discomfort, Improve function and Increase independence Activity: As commented below Lifting: None Bathing: Keep incision dry Bathing Comment: May shower tomorrow Sexual Activity: Wait until after follow-up appointment Exercise/Sports: Wait until after follow-up appointment Driving/Machine Use Comment: No driving until cleared by polymer specialist Weightbearing Comment: as tolerated with walker assistance Non-emergency contact: Primary Care Provider Call non-emergency contact if: you have any medication questions, your pain is not controlled, your temperature is above 101.5, your wound has increased drainage and your wound pain has increased Follow-up/Referrals: Tamar Whitney PA-C [Primary Care Provider] - Diet: Regular Addtl Provider Instructions: Post-operative Instructions Dear Patient and Family/Friends, Before you are discharged from the hospital, it is important to know what to expect when you get home after surgery. To that end, we have created this sheet of discharge instructions which covers many commonly asked questions. Make sure you go through this sheet in its entirety with your nurse before you are discharged. Please note that we will go over the specifics of your surgery and recovery when you return for your first post-operative visit. Sincerely, Dr. Morales Medications You will be discharged with prescriptions for Oxycodone and Diclofenac Sodium. Also you will need to purchase Extra Strength Tylenol and Baby Aspirin. Oxycodone is to be taken 1-2 tabs by mouth every 4-6 hrs as needed for pain. You may take two Extra Strength Tylenol with every other dose of the Oxycodone. The Diclofenac is to be take after breakfast and dinner each day for 30 days post operatively. The Aspirin 81 mg is to be taken twice daily for 30 days post operatively to help prevent blood clots. Pain Expect to be in a fair amount of pain after surgery. Remember, our goal is not to eliminate your pain, but to make it tolerable. It is a good idea to stay ahead of your pain by taking the medications you were prescribed once you get home. Typically, the pain starts improving 3-7 days after surgery. You should start weaning off the narcotic pain medication (oxycodone, hydrocodone, hydromorphone, morphine) as soon as your pain improves. Please call our office if your pain is not adequately controlled. Ice Ice your operative site at least 5 times a day for 15-30 minutes at a time. Make sure you have a thin cloth between the ice or cooling unit and your skin to prevent metz bite. This is especially important if you received a nerve block. Continue icing your operative site for the first 5-7 days after surgery, then as needed. Diet/Nausea/Vomiting Start by drinking clear liquids and eating crackers. If you can tolerate this, then you may resume your normal diet. If you feel nauseated or vomit, take Zofran/ondansetron (if prescribed). Please call our office if you have intractable nausea or vomiting, or, if after hours, you may go to the Emergency Room for help. Constipation Constipation is a common side effect of narcotic pain medication. If you have not had a bowel movement within 2 days after surgery, we recommend purchasing an over the counter laxative such as Milk of Magnesia, Dulcolax, or Miralax from a local pharmacy, and taking it as instructed. Call our clinic if any questions. Slings and Braces If you were placed in a sling or brace, it must be worn at all times, including sleep. You may remove your sling or brace for physical therapy, home exercises, and showering. The length of time you will be in your brace and range of motion restrictions depends on what surgery you had; these details will be reviewed at your first post-operative appointment. Nerve block The anesthesia team sometimes places a nerve block to help with post-operative pain control. This results in significant numbness and inability to move the extremity. The nerve block usually wears off in 8-12 hours, but sometimes can last up to 24 hours. Please call our office if you are still unable to move your extremity after 24 hours, unless you received a pain pump to take home. Nerve blocks typically wear off quickly, so start taking pain medication as soon as you start feeling soreness near your surgical site. Weight bearing and Range of Motion. Do not bear any weight through your operative extremity immediately after surgery. If you had upper extremity surgery, do not lift anything with that arm. If you are in a knee brace, keep it locked in place until your follow-up. We will discuss your weight bearing, range of motion, and lifting restrictions in detail at your first post-operative appointment. Continuous Passive Motion (CPM) Machine If you were prescribed a CPM machine, it will start after your first post- operative appointment, at which time we will give you instructions on the range of motion settings and duration of treatment Physical therapy You will be given a prescription for physical therapy or occupational therapy at your first post-operative appointment. Typically, patients start therapy within 1 week of surgery Wound care and showering We will inspect your wound at your first post-operative visit, and may do a dressing change at that time. Most patients will be in a water-proof dressing that is removed 14 days after surgery. It is normal to see some dried blood on the dressing. Do not remove your dressing, paper strips or sutures yourself unless you are given permission. Showering is allowed the day after surgery. Do not scrub or remove any dressings. The wound should not be submerged underwater (i.e. in a bathtub or pool) until 4 weeks after surgery PIERO stockings If you were given white stockings, these are to be worn at all times except to shower (on both legs) for the first 2 weeks after surgery. Driving You may not drive while taking narcotic pain medication or while in a cast, splint, sling or brace. You, the patient, need to make the final determination about when you are safe to drive, however, the earliest you may consider driving after surgery is below: Hand/Wrist/Elbow Surgery: 3 days Shoulder Surgery: 2 weeks Hip,/Knee/Ankle Surgery: 4 weeks Fracture repair: 6 weeks Return to Work Your return to work depends on what surgery was done and what type of work you do. Please bring any paperwork your employer needs completed to your first post-operative visit. Also, bring a description of your job duties, as this helps us to understand what risks you may face at work. Travel Avoid long distance travel (greater than 1 hour) in airplanes and cars for the first 6 weeks after surgery. If you must travel, you need to have a Doppler ultrasound done before you travel to rule out a blood clot in your legs. Follow-up You should have a follow-up appointment already scheduled 1-2 days after surgery. If not, please contact our office to make this appointment before you leave the hospital. When to call the office It is normal to have swelling and bruising in the limb that was operated on. This will improve with time. It is also normal to have fevers for the first 2 days after surgery. Reasons you should call your doctor include: Uncontrolled pain; Nausea, vomiting, or constipation that does not improve with medication; Fevers over 101.5, chills, sweats; Drainage or bleeding from the wound; Foul odor; Spreading areas of redness; Any other concerns Prescriptions: New oxycodone 5 mg tablet 5 mg PO Q6H PRN (Reason: pain) Qty: 20 RF: 0 diclofenac sodium 75 mg tablet,delayed release (DR/EC) 75 mg PO BID MDD Hold Celebrex while taking PRN (Reason: pain) 30 Days Qty: 60 RF: 1 Continued celecoxib 200 mg capsule 200 mg PO QAM Qty: 90 RF: 0 cholecalciferol (vitamin D3) 1,000 unit capsule 1,000 units PO QAM RF: 0 Stand-Alone Forms: [employer] App, [facility]io[facility] Pain [facility]/Other Patient Handouts: Precautions Hip Discharge Orders: Discharge Order (Routine); Ordered 05/27/19 Ordered By: Mac Degroot Admission Data Admit Date/Time: 05/26/19 09:05 Attending Provider: Armen Morales Admit Provider: Armen Morales Primary Care Provider: Tamar Whitney Service: Surgical Services Other Interventions: Discharge Summary Assessment (RN) Last Done: 05/27/19 12:54 Pending Studies at Discharge: No DC Date/Time DO NOT enter until pt leaves facility: 05/27/19 13:38
== END 2019-05-27 13:38 | disposition home health service (06) | DRG 470 ==
LOC: ASU 04:47 → 3E 09:05